=== PATIENT | female | born 1950 | race African-American/Black ===

== ENCOUNTER 2022-08-13 10:19 | Inpatient (IN) | payer OTHER, MEDICAID ==
[~2022-08-13] VITALS: Ht 157.5 cm; Wt 56.7 kg
[~2022-08-13 10:19] MED LIST: MAG SULF 2000 MG/WATER PREMIX 50 ML IV PRN
[2022-08-13 10:28] VITALS: BP 125/59; PULSE 89; RESP 20; TEMP 97.8; O2SAT 90
--- NOTE | 2022-08-13 11:21 | NUR ---
PATIENT PRESENTS TO ED WITH LEFT LEG SWELLING, SOB, LOW SPO2 . PT STATES . DENIES N/V/D; SKIN IS PINK/WARM/DRY; AAOX4 WITH EVEN AND STEADY GAIT;BL; HR EVEN AND REGULAR; PT DENIES ANY FEVER, CP,+ SOB,BS WITH CRACKLES BILAT BASES ,NO COUGH AT THIS TIME; PATIENT STATES PAIN OF 0/10 AT THIS TIME; VSS; PATIENT POSITIONED FOR COMFORT; HOB ELEVATED; BEDRAILS UP X2; BED DOWN. ER MD MADE AWARE OF PT STATUS.CALL LIGHT WITH IN REACH
[2022-08-13 11:27] LABS: BASOPHILS # (AUTO) 0.1 K/uL (0.00-0.22); EOSINOPHILS # (AUTO) 0.7 K/uL (0-0.4); EOSINOPHILS % (AUTO) 7.2 % (0.0-4.0); HEMATOCRIT 29.3 % (36-48); HEMOGLOBIN 9.8 g/dL (12.0-16.0); LYMPHOCYTES # (AUTO) 2.1 K/uL (2.5-16.5); LYMPHOCYTES % (AUTO) 20.1 % (20.5-51.1); MEAN CORPUSCULAR HEMOGLOBIN 28 pg (27-31); MEAN CORPUSCULAR HGB CONC 33 g/dL (33-37); MEAN CORPUSCULAR VOLUME 83.8 fL (80-94); MONOCYTES # (AUTO) 0.9 K/uL (0.8-1.0); MONOCYTES % (AUTO) 8.7 % (1.7-9.3); NEUTROPHILS # (AUTO) 6.6 K/uL (1.8-7.7); PLATELET COUNT (AUTO) 363 K/uL (140-450); RED BLOOD CELL COUNT(AUTO) 3.49 MIL/uL (4.20-5.40); RED CELL DISTRIBUTION WIDTH 18.3 % (11.6-13.7); WHITE BLOOD COUNT (AUTO) 10.4 K/uL (4.8-10.8)
--- NOTE | 2022-08-13 11:40 | NUR ---
Ultrasound at bedside.
[2022-08-13 11:57] LABS: ALBUMIN 1.4 g/dL (3.4-5.0); ANION GAP 11.6 (8-16); ASPARTATE AMINOTRANSFERASE 30 U/L (15-37); CARBON DIOXIDE 22.3 mmol/L (21-32); CHLORIDE 97 mmol/L (98-107); CREATININE 2.1 mg/dL (0.6-1.3); GLUCOSE 122 mg/dL (74-106); POTASSIUM 4.9 mmol/L (3.5-5.1); SODIUM SERUM 126 mmol/L (136-145); TOTAL BILIRUBIN 0.2 mg/dL (0.0-1.0); UREA NITROGEN, BLOOD 46 mg/dL (7-18)
--- NOTE | 2022-08-13 11:57 | NUR ---
X-Ray at bedside.
--- NOTE | 2022-08-13 12:36 | NUR ---
Sharath bai in [facility] - 08/13/22 at 1236 by [email or web address] pt wheeled to radiology for CT scan
--- NOTE | 2022-08-13 14:08 | NUR ---
PT PLACED ON BED PAIN AT THIS TIME PER REQUEST. CALL LIGHT WITHIN REACH
--- NOTE | 2022-08-13 14:47 | NUR ---
SURVEYING CREW STAKE RUNNER CALLED AND UPDATED WITH PT STATUS. REQUESTED ABG TO BE ORDERED. NOTIFIED. CALL BACK NUMBER [phone]
--- NOTE | 2022-08-13 15:20 | NUR ---
SENIOR JAVA J2EE DEVELOPER ILENE WAS CALLED AND UPDATED ON ABG FINDINGS. STATED SHE WILL FOLLOW UP WITH HER ADMINISTRATIVE SERVICES MANAGER FOR ADMISSION APPROVAL PHONE [phone]
--- NOTE | 2022-08-13 15:55 | NUR ---
MIRROR INSPECTOR CALLED AND STATED THAT ADMISSION IS DENIED DUE TO PULMONARY EMBOLISM RISK BEING A CHRONIC ISSUE SINCE SHE WAS ADMITTED TO [facility] July FOR THE SAME MEDICAL DIAGNOSIS. CALL WAS FOWARED TO FOR FURTHER EXPLANATION Addendum: 08/13/22 at 1604 by [email or web address] MIRROR INSPECTOR CALLED AND STATED THAT ADMISSION IS DENIED DUE TO PULMONARY EMBOLISM RISK BEING A CHRONIC ISSUE SINCE SHE WAS ADMITTED TO [facility] July FOR THE SAME MEDICAL DIAGNOSIS. CALL WAS FOWARED TO FOR FURTHER EXPLANATION. J2EE CONSULTANT GAVE VERBAL AUTH FOR OBSERVATION
--- NOTE | 2022-08-13 17:10 | NUR ---
PATIENT PRESENTS TO ED WITH SOB .DENIES N/V/D; AAOX4 WITH EVEN AND STEADY GAIT; HR EVEN AND REGULAR; PT DENIES ANY FEVER, CP,OR COUGH AT THIS TIME; PATIENT STATES PAIN OF 0/10 AT THIS TIME; VSS; PATIENT POSITIONED FOR COMFORT; HOB ELEVATED; BEDRAILS UP X2; BED DOWN. ER MD MADE AWARE OF PT STATUS. DAUGHTER AT BEDSIDE. CALL LIGHT WITHIN REACH
[2022-08-13] MEDS ORDERED: ACETAMINOPHEN 650 MG/20.3 ML UDC PO ONE (18:00)
[2022-08-13] MEDS ORDERED: LEVO0.124 PO (18:16)
[2022-08-13] MEDS ORDERED: INSU100S53 SC (18:16)
[2022-08-13] MEDS ORDERED: LORA10TA19 PO (18:19)
[2022-08-13] MEDS ORDERED: AMLO5TAB PO (18:21)
[2022-08-13] MEDS ORDERED: LISI1TAB45 PO (18:29)
[2022-08-13] MEDS ORDERED: METO50TE2 PO (18:34)
[2022-08-13] MEDS ORDERED: ASPI-1822 PO (18:34)
--- NOTE | 2022-08-13 19:56 | NUR ---
acc checks showed 64. pt is given snack like sandwich and drink
[2022-08-13] MEDS ORDERED: ONDANSETRON 4 MG/2 ML VIAL IVP PRN (20:25)
[2022-08-13] MEDS ORDERED: ACETAMINOPHEN 325 MG TAB PO PRN (20:25)
[2022-08-13] MEDS ORDERED: POTASSIUM CHLORIDE 10 MEQ TABER PO PRN (20:25)
[2022-08-13] MEDS ORDERED: MORPHINE SULFATE 2 MG/ML SYR IVP PRN (20:25)
[2022-08-13] MEDS ORDERED: LORazepam 2 MG/ML VIAL IVP PRN (20:25)
[2022-08-13] MEDS ORDERED: ZOLPIDEM 10 MG TAB PO PRN (20:25)
[2022-08-13] MEDS ORDERED: DOCUSATE SODIUM 100 MG GELCAP PO PRN (20:25)
[2022-08-13 20:35] VITALS: BP 144/62; PULSE 84; PULSE 85; RESP 18; TEMP 95.8; O2SAT 95
--- NOTE | 2022-08-13 20:45 | NUR ---
RECEIVED REPORT FROM ER NURSE SUSAN FOR CONTINUITY OF CARE. PATIENT IS A&O X4. PATIENT IS ON 2L NC, BREATHING IS NORMAL WITH SYMMETRICAL RISE AND FALL OF CHEST. PATIENT'S IV IS 20G LAC, NO FLUIDS RUNNING AT THIS TIME. PATIENT IS CURRENTLY SITTING SEMI-FOWLERS IN BED. BED IS IN LOWEST POSITION, WHEELS LOCKED, CALL LIGHT IN PLACE. WILL CONTINUE TO OBSERVE PATIENT.
--- NOTE | 2022-08-13 21:18 | NUR ---
Patient will be admitted to care of [facility]. Admited to tele. Will go to room 111a. Belongings list completed. Report to lisseth HOOVER.
--- NOTE | 2022-08-13 22:15 | NUR ---
SPOKE WITH PATIENT'S DAUGHTER, SHAWN, ON THE PHONE. DAUGHTER ASKED ABOUT DIAGNOSTIC TESTS DONE ON HER MOM. INFORMED HER OF CHEST X-RAY AND ULTRASOUND; DAUGHTER ASKED IF ANY OTHER TESTS WERE DONE FOR PE. I INFORMED HER THAT THESE WERE THE ONLY TESTS I COULD SEE THAT HAD BEEN. DAUGHTER ASKED WHO THE ADMITTING DOCTOR WAS, I INFORMED HER IT WAS DOCTOR TOMLINSON. DAUGHTER ASKED IF THE DOCTOR WAS CURRENTLY BUSY, I INFORMED HER THAT THE DOCTOR WAS NOT CURRENTLY HERE IN THE HOSPITAL, THAT THE DOCTORS DIDN'T COME IN UNTIL MORNING. DAUGHTER SAID SHE UNDERSTANDS THAT, AND ASKED TO SPEAK WITH HER MOM, PUT THE PATIENT ON THE PHONE WITH HER DAUGHTER. AFTER PATIENT SPOKE WITH DAUGHTER, DAUGHTER THANKED ME AND HUNG UP.
[2022-08-14] VITALS (8 sets, daily range): BP systolic 138–154; BP diastolic 63–72; PULSE 76–95; RESP 18–20; TEMP 96.8–98.9; O2SAT 92–98
--- NOTE | 2022-08-14 03:00 | NUR ---
PATIENT CALLED AND REQUESTED A BEDPAN TO VOID. PLACED BEDPAN UNDER PATIENT. PATIENT VOIDED IN GIBBS; NO BM. WILL CONTINUE TO OBSERVE PATIENT.
--- NOTE | 2022-08-14 03:23 | NUR ---
WENT INTO PATIENT'S ROOM TO OBTAIN CONSENT FOR VQ SCAN IN THE MORNING. PATIENT REFUSED TO SIGN CONSENT, STATING SHE DOESN'T WANT THE SCAN TOMORROW BECAUSE SHE IS WORRIED ABOUT HER BLOOD SUGAR GOING DOWN IF SHE CAN'T EAT OR DRINK. EXPLAINED RISK AND BENEFITS TO PATIENT, BUT PATIENT STILL REFUSED. INFORMED CHARGE NURSE OF PATIENT'S REFUSAL. WILL INFORM DAY SHIFT NURSE.
--- NOTE | 2022-08-14 06:05 | NUR ---
CHARGE NURSE MONI SPOKE WITH TIRE TESTERLESTER FAIRBANKS. HE INFORMED HER THAT PATIENT REFUSED TO SIGN CONTRAST CONSENT FOR VQ SCAN. MAGDI INFORMED HIM TO CALL BACK AND LET THEM KNOW IF PATIENT CHANGES HER MIND.
[2022-08-14 06:25] LABS: BASOPHILS # (AUTO) 0.1 K/uL (0.00-0.22); BASOPHILS % (AUTO) 0.9 % (0.0-2.0); EOSINOPHILS # (AUTO) 1.4 K/uL (0-0.4); HEMATOCRIT 27.8 % (36-48); HEMOGLOBIN 9.3 g/dL (12.0-16.0); LYMPHOCYTES # (AUTO) 1.7 K/uL (2.5-16.5); MEAN CORPUSCULAR HEMOGLOBIN 28 pg (27-31); MEAN CORPUSCULAR HGB CONC 33 g/dL (33-37); MEAN CORPUSCULAR VOLUME 83.5 fL (80-94); MONOCYTES # (AUTO) 1.1 K/uL (0.8-1.0); MONOCYTES % (AUTO) 12.7 % (1.7-9.3); NEUTROPHILS # (AUTO) 4.5 K/uL (1.8-7.7); NEUTROPHILS % (AUTO) 51.4 % (42.2-75.2); PLATELET COUNT (AUTO) 283 K/uL (140-450); RED BLOOD CELL COUNT(AUTO) 3.33 MIL/uL (4.20-5.40); RED CELL DISTRIBUTION WIDTH 18.5 % (11.6-13.7)
[2022-08-14 06:40] LABS: ANION GAP 10.2 (8-16); CARBON DIOXIDE 22.4 mmol/L (21-32); CHLORIDE 101 mmol/L (98-107); CREATININE 2.3 mg/dL (0.6-1.3); GLUCOSE 115 mg/dL (74-106); POTASSIUM 4.6 mmol/L (3.5-5.1); SODIUM SERUM 129 mmol/L (136-145); UREA NITROGEN, BLOOD 51 mg/dL (7-18)
[2022-08-14] MEDS ORDERED: INSULIN LISPRO SLIDING SCALE 100 UNITS/ML VIAL SUBQ PRN ×2 (06:45→21:00)
[2022-08-14] MEDS ORDERED: DEXTROSE 50% 50 ML SYR IVP PRN (06:45)
[2022-08-14 07:10] LABS: WHITE BLOOD COUNT (AUTO) 8.7 K/uL (4.8-10.8)
[2022-08-14] MEDS: BLOOD GLUCOSE MONITORING 1 DEV DEV FS SCH ×4 (07:14→20:48)
--- NOTE | 2022-08-14 07:25 | NUR ---
ENDORSED PATIENT TO DAY SHIFT NURSE YANY FOR CONTINUITY OF CARE. PATIENT IS STABLE.
--- NOTE | 2022-08-14 07:50 | NUR ---
RECEIVE CALL FROM PATIENT'S DAUGHTER, SHAWN, THAT SHE WANTS NURSE FEEDING PATIENT, SHE ALSO WANT BQ SCAN DONE TODAY WHICH, PER RADIOLOGY PERSONAL, THE BQ SCAN NEEDS PATIENT NPO. CAROUSEL OPERATOR IS HERE AND SYNTHROID ORDERED AND GIVE BEFORE BREAKFAST TRAY PASS. WILL CONTINUE TO MONITOR
[2022-08-14] MEDS ORDERED: LEVOTHYROXINE 0.025 MG TAB PO SCH (08:05)
[2022-08-14] MEDS ORDERED: LEVOTHYROXINE 0.025 MG, LEVOTHYROXINE 0.1 MG PO SCH ×2 (08:16)
[2022-08-14] MEDS ORDERED: LEVOTHYROXINE 0.025 MG TAB ONE (08:18)
[2022-08-14] MEDS ORDERED: LEVOTHYROXINE 0.1 MG TAB ONE (08:19)
--- NOTE | 2022-08-14 09:06 | NUR ---
PATIENT HAS BEEN SCREENED AND CATEGORIZED HIGH NUTRITION RISK. PATIENT WILL BE SEEN WITHIN 1-2 DAYS OF ADMISSION. 08/13/22-08/15/[address] [facility]NS REFERRAL RECEIVED FOR UNCONTROLLED DIABETES
--- NOTE | 2022-08-14 15:54 | NUR ---
08/14/22 RD INITIAL ASSESSMENT COMPLETED. PLEASE REFER TO NUTRITION ASSESSMENT UNDER CARE ACTIVITY FOR ESTIMATED NUTRITIONAL NEEDS. 1. RECOMMEND CCHO/CARDIAC DIET 2. MONITOR BLOOD GLUCOSE 3. MONITOR PO INTAKE 4. PROVIDED DIABETES DIET EDUCATION 5. RD TO FOLLOW-UP 3-5 DAYS, MODERATE RISK EMILY HOLDEN RD
[2022-08-14] MEDS ORDERED: FUROSEMIDE 40 MG/4 ML VIAL IVP SCH (18:30)
--- NOTE | 2022-08-14 19:40 | NUR ---
ENDORSE PATIENT IN STABLE CONDITION TO PM SHIFT NURSE AFTER PLACE PATIENT ON BEDPAN PER REQUEST. PATIENT IS ON 2 LITER VIA NC. LASIX GIVE VIA LAC PIV SITE.
[2022-08-15] VITALS (8 sets, daily range): BP systolic 137–165; BP diastolic 59–75; PULSE 62–99; RESP 18–20; TEMP 96.6–98.2; O2SAT 93–98
[2022-08-15 02:05] LABS: APPEARANCE,URINE CLEAR (CLEAR); BILIRUBIN,URINE NEGATIVE (NEGATIVE); BLOOD, URINE 1+ (NEGATIVE); COLOR,URINE YELLOW (YELLOW); LEUKOCYTE ESTERASE ,URINE NEGATIVE (NEGATIVE); NITRITE, URINE NEGATIVE (NEGATIVE); UGLUCOSE NEGATIVE (NEGATIVE)
[2022-08-15] MEDS ORDERED: LEVOTHYROXINE 0.025 MG TAB ONE (06:01)
[2022-08-15] MEDS ORDERED: LEVOTHYROXINE 0.1 MG TAB ONE (06:01)
[2022-08-15] MEDS ORDERED: LEVOTHYROXINE 0.025 MG, LEVOTHYROXINE 0.1 MG PO SCH ×2 (06:30)
[2022-08-15] MEDS ORDERED: LEVOTHYROXINE 0.1 MG TAB PO SCH (06:30)
--- NOTE | 2022-08-15 07:03 | NUR ---
Received patient from previous shift, is alert and oriented x3, voiced no c/o pain, slept well through the night, frequently used call rivera for bed mc, urine collected and sent to lab. Daughter called in to check up on patient. Skin intact and tolerated all po meds. Refused AM lab this morning.
--- NOTE | 2022-08-15 07:37 | NUR ---
RECEIVED PT ON 2L NASAL CANNULA. SATURATION 96%. EQUAL CHEST RISE, NO SOB, NO DISTRESS NOTED. CALL LIGHT WITHIN REACH OF PT. WILL CONTINUE TO MONITOR.
[2022-08-15] MEDS: BLOOD GLUCOSE MONITORING 1 DEV DEV FS SCH ×4 (07:43→20:09)
--- NOTE | 2022-08-15 08:39 | NUR ---
PT. WITH LOW EMMA SCALE AT MODERATE TO HIGH RISK, CONTINUE TO FOLLOW PRESSURE INJURY PREVENTION INTERVENTIONS. -POSITIONING: TURN AND REPOSITION PATIENT Q 2H OR SOONER USE PILLOWS TO KEEP BONY PROMINENCES FROM DIRECT CONTACT WITH SURFACES USE REPOSITIONING WEDGES TO PROVIDE 30-DEGREE ANGLE FOR SIDE LYING POSITIONS OFFLOADING OR FOAM DRESSING TO ALL TUBING TO PREVENT MEDICAL DEVICES RELATED PRESSURE INJURY -RE-EVALUATING AND MANAGING INCONTINENCE MONITOR SKIN CONDITION DURING POSITION CHANGE DO NOT MASSAGE REDNESS, BONY PROMINENCES FREQUENT TRACEY-CARE AND PROVIDE BARRIER CREAMS PRN IF SOILING MOISTURE CONTROL BY OFFER BED GIBBS/URINAL /ABSORBENT PAD TO WICK AND HOLD MOISTURE KEEP SKIN DRY AND PROTECT FROM FRICTION -MANAGE FRICTION/SHEAR/MOBILITY KEEP HOB AT THE LOWEST LEVEL OF ELEVATION NO MORE THAN 30 DEGREE UNLESS OTHERWISE CONTRAINDICATED USE LIFT SHEET OR TRANSFER DEVICE TO MOVE PATIENT AND PREVENT LATERAL SHEER. PROTECT HEELS, ELBOWS BONY PROMINENCES WITH SKIN BERRIES OR FOAM DRESSING IF EXPOSED TO FRICTION OFFLOAD BILATERAL HEELS BY PLACING PILLOWS UNDER CALVES AT ALL TIMES, UNLESS OTHERWISE CONTRAINDICATED -PRESSURE REDISTRIBUTION SURFACE THERAPY TERA ISOFLEX MATTRESS -NUTRITION: PLEASE FOLLOW RD RECOMMENDATIONS AND OFFER NUTRITION SUPPLEMENTS IF ORDERED. PLEASE CONTACT WOUND CARE NURSE FOR ANY QUESTION AND CHANGE OF WOUND CONDITION.
[2022-08-15] MEDS: METOPROLOL SUCCINATE 50 MG TABER PO SCH (08:58)
[2022-08-15] MEDS: lisinopriL 20 MG TAB PO SCH (09:00)
[2022-08-15] MEDS: ASPIRIN 81 MG TAB.CHEW PO SCH (09:00)
[2022-08-15] MEDS ORDERED: amLODIPine 5 MG TAB PO SCH (09:00)
[2022-08-15] MEDS ORDERED: hydroCHLOROthiazide 25 MG TAB PO SCH (09:00)
[2022-08-15] MEDS ORDERED: FUROSEMIDE 40 MG/4 ML VIAL IVP SCH (09:00)
[2022-08-15] MEDS ORDERED: NON-FORMULARY ITEM (Lisinopril/Hydrochlorothiazide (Lisinopril-Hctz 20-12.5 mg Tab) 1 TAB) PO SCH (09:00)
--- NOTE | 2022-08-15 12:03 | NUR ---
DC PLANNING A 72 Y O MALE PATIENT ADMITTED TO [facility] FOR SOB AND ACUTE HYPOXIC RESPIRATORY FAILURE ASSOCIATED WITH , WEAKNESS AND FATIGUE.PATIENT LIVES ALONE.PAST MEDICAL HX OF HYPOTHYROIDISM AND HTN.PATIENT ALSO SUSTAINEDA FALL 3.5 WEEKS AGO AND WAS EVALUATED AT [facility] FOR ABOUT A WEEK FOR UTI.08/13 LOWER EXT VENOUS DOPPLER NEGATIVE.08/14 VQ SCAN - INTERMEDIATE PROBABILITY.ON HEPARIN DRIP.CARDIO AND PULMO ON BOARD.DC PLAN-DC HOME WHEN PATIENT CONDITION IMPROVES AND PATIENT RESPONDS TO TX.CM TO FOLLOW. Addendum: 08/16/22 at 1332 by BAUDILIO TAY CM DC PLANNING DC ORDER IN.DAUGHTER AT BEDSIDE AND WAS [facility]FOR[facility] FOR [facility]ALTH HEALTH FOR PT AND HOME O2.WILL GET IN TOUCH WITH MARGARITO,SHAWN FOR OTHER DISCHARGE INSTRUCTIONS.DISCHARGE SUMMARY FAXED TO [facility] .AUTH #[id number] PROVIDED BY [facility] FOR HOSPITAL STAY HERE AT [facility]. Addendum: 08/16/22 at 1650 by BAUDILIO TAY CM LATE ENTRY TRANSPORT BLS AMBULANCE ARRANGED BY MAUREEN AT [facility] SAME PHONE NUMBER WITH CARLINE ODOM .UNIT PHONE NUMBER PROVIDED TO MAUREEN ONCE AMBULANCE IS ARRANGED. Addendum: 08/18/22 at 1223 by SYLVESTER COLLAZO CM RECEIVED CALL FROM CHRISTINE FROM INSURANCE WHO INFORMED US THAT PATIENT WAS ACCEPTED AT [facility] FOR HOME HEALTH FOR PT, THEY WILL BE CONTACTING THE PATIENT DIRECTLY TO START THE HOME HEALTH.
--- NOTE | 2022-08-15 13:30 | NUR ---
PATIENT'S DAUGHTER, NIRANJAN STEVENS ([phone]) LEFT ORDER REQUEST TO DOCTOR VIA NURSE THAT DAUGHTER WANT HAVE "TSH, TPO, GE & TSI ANTIBODIES, TOTAL FREE + REVERSE T4 & T3" TEST. DAUGHTER ALSO REQUEST MD HOPKINS FOLLOWING: "IF THESE ARE REFUSED, DOCUMENT THAT YOUR REFUSE TO TEST THESE FOR MY MOM, DIAMOND MACHADO PER DAUGHTER DIANN ARAIZA." AWARE. WILL CONTINUE TO MONITOR. Addendum: 08/15/22 at 1341 by Daiana Teresa RN IT TG & TSI NOT GE & TSI Addendum: 08/15/22 at 1859 by Daiana Teresa RN PATIENT'S LAB RESULT COME BACK SHOW TROPONIN 89 (REPORT TO DR. LEE RECEIVE "NO NEW ORDER) AND AMMONIA <10. REPORT TO PCP, WILL CONTINUE TO MONITOR Addendum: 08/15/22 at 1938 by Daiana Teresa RN ENDORSE PATIENT TO PM SHIFT NURSE AFTER HELP PATIENT CALLED HER FRIEND IN [place] AND CHANGE HER INTO UNDERBRED.
[2022-08-15 14:17] LABS: URINE TOTAL PROTEIN 1.8 mg/dL (0-12)
[2022-08-15 14:18] LABS: CREATININE,URINE < 30 mg/dL (30-125)
[2022-08-15 18:18] LABS: ANION GAP 13.6 (8-16); CHLORIDE 102 mmol/L (98-107); CREATININE 2.3 mg/dL (0.6-1.3); GLUCOSE 148 mg/dL (74-106); POTASSIUM 4.6 mmol/L (3.5-5.1); SODIUM SERUM 133 mmol/L (136-145); UREA NITROGEN, BLOOD 50 mg/dL (7-18)
[2022-08-15 18:20] LABS: BASOPHILS # (AUTO) 0.1 K/uL (0.00-0.22); EOSINOPHILS # (AUTO) 1.5 K/uL (0-0.4); EOSINOPHILS % (AUTO) 18.4 % (0.0-4.0); HEMATOCRIT 27.6 % (36-48); HEMOGLOBIN 9.1 g/dL (12.0-16.0); LYMPHOCYTES # (AUTO) 2.2 K/uL (2.5-16.5); LYMPHOCYTES % (AUTO) 27.6 % (20.5-51.1); MEAN CORPUSCULAR HEMOGLOBIN 28 pg (27-31); MEAN CORPUSCULAR HGB CONC 33 g/dL (33-37); MONOCYTES # (AUTO) 0.8 K/uL (0.8-1.0); MONOCYTES % (AUTO) 9.9 % (1.7-9.3); NEUTROPHILS # (AUTO) 3.5 K/uL (1.8-7.7); NEUTROPHILS % (AUTO) 43.1 % (42.2-75.2); PLATELET COUNT (AUTO) 308 K/uL (140-450); RED BLOOD CELL COUNT(AUTO) 3.33 MIL/uL (4.20-5.40); RED CELL DISTRIBUTION WIDTH 18.6 % (11.6-13.7); WHITE BLOOD COUNT (AUTO) 8.1 K/uL (4.8-10.8)
--- NOTE | 2022-08-15 19:20 | NUR ---
RECEIVED PT IN BED AWAKE, ALERT AND ORIENTED X4. DENIES PAIN AT THIS TIME. NO ACUTE RESPIRATORY DISTRESS. SKIN WARM AND DRY TO TOUCH. SAFETY PRECAUTIONS IN PLACE, CALL LIGHT WITHIN REACH.
[2022-08-15] MEDS: FUROSEMIDE 40 MG/4 ML VIAL IVP SCH (20:09)
--- NOTE | 2022-08-15 21:27 | NUR ---
PT MOVED TO RM 110-B. DAUGHTER AWARE OF TRANSFER, CALLED AND UPDATED ON PT'S CONDITION, SPOKE WITH PT. CALL LIGHT GIVEN TO PT.
[2022-08-16] VITALS (13 sets, daily range): BP systolic 126–160; BP diastolic 52–68; PULSE 73–93; RESP 16–18; TEMP 97.8–209.5; O2SAT 92–98
--- NOTE | 2022-08-16 | NUR ---
VITAL SIGNS TAKEN AND DOCUMENTED, VS WITHIN NORMAL LIMITS. PERINEAL CARE RENDERED, MADE COMFORTABLE IN BED, PT APPRECIATIVE OF CARE. CALL LIGHT PLACED WITHIN REACH.
--- NOTE | 2022-08-16 01:32 | NUR ---
PROVIDED WATER PER PT'S REQUEST. CALL LIGHT REMAINS WITHIN REACH.
--- NOTE | 2022-08-16 02:46 | NUR ---
PATIENT IS ASLEEP. BREATHING EVEN AND UNLABORED. CALL LIGHT WITHIN REACH.
--- NOTE | 2022-08-16 04:46 | NUR ---
AM CARE RENDERED. GOWN AND LINENS CHANGED. MADE COMFORTABLE IN BED. CALL LIGHT PLACED WITHIN REACH.
[2022-08-16] MEDS: LEVOTHYROXINE 0.075 MG TAB PO SCH (05:32)
[2022-08-16] MEDS: BLOOD GLUCOSE MONITORING 1 DEV DEV FS SCH ×4 (06:32→21:00)
[2022-08-16 06:36] LABS: BASOPHILS # (AUTO) 0.1 K/uL (0.00-0.22); BASOPHILS % (AUTO) 0.8 % (0.0-2.0); EOSINOPHILS # (AUTO) 1.4 K/uL (0-0.4); EOSINOPHILS % (AUTO) 19.1 % (0.0-4.0); HEMOGLOBIN 9.9 g/dL (12.0-16.0); LYMPHOCYTES # (AUTO) 2.2 K/uL (2.5-16.5); LYMPHOCYTES % (AUTO) 30.6 % (20.5-51.1); MEAN CORPUSCULAR HEMOGLOBIN 27 pg (27-31); MEAN CORPUSCULAR HGB CONC 33 g/dL (33-37); MEAN CORPUSCULAR VOLUME 82.9 fL (80-94); MONOCYTES # (AUTO) 0.5 K/uL (0.8-1.0); MONOCYTES % (AUTO) 7.5 % (1.7-9.3); PLATELET COUNT (AUTO) 332 K/uL (140-450); RED BLOOD CELL COUNT(AUTO) 3.62 MIL/uL (4.20-5.40); RED CELL DISTRIBUTION WIDTH 18.5 % (11.6-13.7); WHITE BLOOD COUNT (AUTO) 7.2 K/uL (4.8-10.8)
--- NOTE | 2022-08-16 06:37 | NUR ---
PATIENT IS ASLEEP. NO DISTRESS NOTED. ALL NEEDS ATTENDED TO. SAFETY PRECAUTIONS MAINTAINED DURING THE SHIFT. CALL LIGHT REMAINS WITHIN REACH.
[2022-08-16 06:44] LABS: ANION GAP 13.4 (8-16); CARBON DIOXIDE 23.9 mmol/L (21-32); CHLORIDE 102 mmol/L (98-107); CREATININE 2.1 mg/dL (0.6-1.3); GLUCOSE 118 mg/dL (74-106); POTASSIUM 4.3 mmol/L (3.5-5.1); SODIUM SERUM 135 mmol/L (136-145); UREA NITROGEN, BLOOD 47 mg/dL (7-18)
--- NOTE | 2022-08-16 07:54 | NUR ---
GOT REPORT FROM THE NIGHT NURSE PT AWAKE NO SOB.[id number]
[2022-08-16] MEDS: FUROSEMIDE 40 MG/4 ML VIAL IVP SCH ×2 (08:59→22:17)
[2022-08-16] MEDS: ASPIRIN 81 MG TAB.CHEW PO SCH (09:00)
[2022-08-16] MEDS: METOPROLOL SUCCINATE 50 MG TABER PO SCH (09:00)
[2022-08-16] MEDS: amLODIPine 5 MG TAB PO SCH (09:00)
[2022-08-16] MEDS: lisinopriL 20 MG TAB PO SCH (09:00)
--- NOTE | 2022-08-16 10:20 | NUR ---
PER DOCTOR RUDY REQUEST PREFORMED ROOM AIR TRIAL ON PT. PTS SATURATION DROPPED FROM 95 TO 87%. PLACED PT BACK ON 2L NASAL CANNULA. PT SATURATION INCREASED BACK TO 95% AT THIS TIME NO SOB, OR RESP DISTRESS NOTED, BS ARE CLEAR PT STATES THAT SHE FEELS FINE. CALL LIGHT IS WITHIN REACH. CHARGE NURSE NOTIFIED AND STATED SHE WILL MAKE AWARE FAILED TRIAL. WILL CONTINUE TO MONITOR THROUGHOUT SHIFT.
[2022-08-16] MEDS ORDERED: DOCU-299 PO (10:27)
[2022-08-16] MEDS ORDERED: AMLO-3 PO (10:27)
[2022-08-16] MEDS ORDERED: SYN.075 PO (10:27)
[2022-08-16] MEDS ORDERED: FURO-570 PO (10:27)
[2022-08-16 11:25] LABS: PROTHROMBIN TIME 9.9 secs (10.8-13.4)
[2022-08-16] MEDS ORDERED: THIAMINE 200 MG/2 ML VIAL IV SCH (12:31)
--- NOTE | 2022-08-16 14:51 | NUR ---
PT REQUESTED TO REPOSITION IN BED HIGH. HELPED FOR COMFORT.[id number]
--- NOTE | 2022-08-16 17:06 | NUR ---
CRITICAL VALUE OF TROPONIN IS FORWARDED TO DR GRANT AND DR LEE . [id number] Addendum: 08/16/22 at 1711 by Sushila Ibarra RN DR LEE SAID NOTHING TO CHANGE FROM HIS STAND POINT.[id number]
--- NOTE | 2022-08-16 17:14 | NUR ---
P.T. NOTES HOLD P.T. D[facility]GLAS [facility]LEY TRENDING UP; FF UP TOMORROW IF ABLE; NURSE PRESENT; DAUGHTER IN ROOM, VISITING FROM [place], STATES SHE DOES NOT WANT SNF FOR PATIENT, PLANS TO TAKE PATIENT W/ HER TO [place]; Pt LIVES ALONE, WAS AMBULATORY W/ [facility], DOES NOT DRIVE, DENIES RECENT FALL; NO FAMILY NEARBY.
--- NOTE | 2022-08-16 18:41 | NUR ---
GIVEN TYLENOL FOR THE FINGER PAIN. EVEN THOUGH PT SAYS THE PAIN LEVEL IS 9/10 SHE DID NOT WANT TO TAKE MORPHINE.[id number]
[2022-08-17 04:00] VITALS: BP 143/55; PULSE 77; RESP 18; O2SAT 95
[2022-08-17] MEDS: LEVOTHYROXINE 0.075 MG TAB PO SCH (06:19)
[2022-08-17] MEDS: BLOOD GLUCOSE MONITORING 1 DEV DEV FS SCH ×2 (06:23→11:47)
[2022-08-17 06:48] LABS: BASOPHILS # (AUTO) 0.1 K/uL (0.00-0.22); BASOPHILS % (AUTO) 0.8 % (0.0-2.0); EOSINOPHILS # (AUTO) 1.5 K/uL (0-0.4); EOSINOPHILS % (AUTO) 22.1 % (0.0-4.0); HEMATOCRIT 25.8 % (36-48); HEMOGLOBIN 8.7 g/dL (12.0-16.0); LYMPHOCYTES # (AUTO) 1.7 K/uL (2.5-16.5); LYMPHOCYTES % (AUTO) 25.8 % (20.5-51.1); MEAN CORPUSCULAR HEMOGLOBIN 28 pg (27-31); MEAN CORPUSCULAR HGB CONC 34 g/dL (33-37); MEAN CORPUSCULAR VOLUME 82.7 fL (80-94); MONOCYTES # (AUTO) 0.8 K/uL (0.8-1.0); MONOCYTES % (AUTO) 12.3 % (1.7-9.3); NEUTROPHILS # (AUTO) 2.6 K/uL (1.8-7.7); PLATELET COUNT (AUTO) 294 K/uL (140-450); RED BLOOD CELL COUNT(AUTO) 3.12 MIL/uL (4.20-5.40); RED CELL DISTRIBUTION WIDTH 18.6 % (11.6-13.7); WHITE BLOOD COUNT (AUTO) 6.6 K/uL (4.8-10.8)
[2022-08-17 06:59] LABS: ANION GAP 10.6 (8-16); CARBON DIOXIDE 25.7 mmol/L (21-32); CHLORIDE 103 mmol/L (98-107); CREATININE 2.2 mg/dL (0.6-1.3); GLUCOSE 99 mg/dL (74-106); POTASSIUM 4.3 mmol/L (3.5-5.1); SODIUM SERUM 135 mmol/L (136-145); UREA NITROGEN, BLOOD 48 mg/dL (7-18)
[2022-08-17 07:17] VITALS: O2SAT 95
--- NOTE | 2022-08-17 07:28 | NUR ---
GOT REPORT FROM THE NIGHT NURSE PT SLEEPING NO SOB.[email or web address]
[2022-08-17 08:00] VITALS: BP 122/50; PULSE 70; PULSE 75; RESP 17; TEMP 98.6; O2SAT 94
[2022-08-17] MEDS: METOPROLOL SUCCINATE 50 MG TABER PO SCH (09:03)
[2022-08-17] MEDS: amLODIPine 5 MG TAB PO SCH (09:03)
[2022-08-17] MEDS: lisinopriL 20 MG TAB PO SCH (09:03)
[2022-08-17] MEDS: ASPIRIN 81 MG TAB.CHEW PO SCH (09:04)
[2022-08-17] MEDS: FUROSEMIDE 40 MG/4 ML VIAL IVP SCH (09:04)
[2022-08-17 12:00] VITALS: BP 130/49; PULSE 73; PULSE 80; RESP 18; TEMP 97.7; O2SAT 95
[2022-08-17 13:37] VITALS: TEMP 97.9
--- NOTE | 2022-08-17 17:53 | NUR ---
PT DISCHARGED HOME , DISCHARGE INSTRUCTION IS GIVEN, IV AND ID BAND REMOVED, PT HAD 022LNC ON UPON DISCHARGED, ASSISTED TO THE CARE WITH PATIENT AND TWO FAMILY MEMBERS HELPING. [email or web address]
--- NOTE | 2022-08-18 11:07 | NUR ---
CALLED PATIENT TO SEE IF PATIENT HAD SCHEDULED A FOLLOW UP APPOINTMENT FOR CHF WITH DR. PATIENT DIDN'T ANSWER BUT I WAS ABLE TO LEAVE A MESSAGE ASKING THE TO CALL ME BACK WITH ANY INFO THEY HAVE.
== END 2022-08-17 14:00 | disposition home or self-care (01) | DRG 175 ==
LOC: MED 10:19 → OBSVTOIN 16:51 → MMU 16:51 → MTU 18:10
PROVIDERS: ADMIT Family Medicine; ATTEND Family Medicine
DX: I26.99 Other pulmonary embolism without acute cor pulmonale (principal); E43 Unspecified severe protein-calorie malnutrition; J96.01 Acute respiratory failure with hypoxia; I50.43 Acute on chronic combined systolic (congestive) and diastolic (congestive) heart failure; I13.0 Hypertensive heart and chronic kidney disease with heart failure and stage 1 through stage 4 chronic kidney disease, or unspecified chronic kidney disease; N17.9 Acute kidney failure, unspecified; E87.1 Hypo-osmolality and hyponatremia; D63.8 Anemia in other chronic diseases classified elsewhere; E03.9 Hypothyroidism, unspecified; Z20.822 Contact with and (suspected) exposure to COVID-19; N18.9 Chronic kidney disease, unspecified; E11.22 Type 2 diabetes mellitus with diabetic chronic kidney disease; Z86.73 Personal history of transient ischemic attack (TIA), and cerebral infarction without residual deficits; Z88.6 Allergy status to analgesic agent; Z79.899 Other long term (current) drug therapy; Z68.22 Body mass index [BMI] 22.0-22.9, adult
CPT/HCPCS: 36415; 36600; 71045; 76604; 76770; 78580; 80048; 80053; 81003; 82140; 82570; 82803; 82948; 83036; 83735; 83880; 84439; 84443; 84484; 85025; 85379; 85610; 85730; 87081; 92526; 93005; 93971; 97116; 97163-GP; 99285; A9540; J1644; J1815; J1940; J3411; Q0092